=== PATIENT | male | born 1930 | race Caucasian/White ===

== ENCOUNTER 2018-01-11 12:48 | Emergency (ER) | payer MEDICARE, OTHER ==
--- NOTE | 2018-01-11 13:19 | PHYS DOC ---
Past History Past Medical History: Dementia Past Surgical History: No Surgical History Smoking: Non-smoker Alcohol Use: Occasionally Drug Use: None Adult General Chief Complaint Chief Complaint: MECHANICAL FALL HPI HPI 87-year-old male patient with history of dementia who lives at home asleep at the shoulder and had a fall and injured his face. Patient denies loss of consciousness. Patient's grandson states he was able to walk and acting like his usual. Patient denies pain. Review of Systems Review of Systems Constitutional: Denies fever or chills [] Eyes: Denies change in visual acuity, redness, or eye pain [] HENT: Denies nasal congestion or sore throat [] Respiratory: Denies cough or shortness of breath [] Cardiovascular: No additional information not addressed in HPI [] GI: Denies abdominal pain, nausea, vomiting, bloody stools or diarrhea [] : Denies dysuria or hematuria [] Musculoskeletal: Denies back pain or joint pain [] Integument: Reports contusion and laceration] Neurologic: Denies headache, focal weakness or sensory changes [] Endocrine: Denies polyuria or polydipsia [] All other systems were reviewed and found to be within normal limits, except as documented in this note. Allergies Allergies Allergies Coded Allergies Type Severity Reaction Last Updated Verified No Known Drug Allergies 01/11/18 No Physical Exam Physical Exam Constitutional: Well nourished, no acute distress, non-toxic appearance. [] HENT: Normocephalic, contusion and abrasion of right forehead, 1 cm transverse laceration of nasal base at the area of eyeglasses without active bleeding or deformity, bilateral external ears normal, oropharynx moist, no oral exudates, nose normal. [] Eyes: PERRLA, EOMI, conjunctiva normal, no discharge. [] Neck: Normal range of motion, no tenderness, supple, no stridor. [] Cardiovascular:Heart rate regular rhythm, no murmur [] Lungs & Thorax: Bilateral breath sounds clear to auscultation [] Abdomen: Bowel sounds normal, soft, no tenderness, no masses, no pulsatile masses. [] Skin: Warm, dry, no erythema, no rash. [] Back: No tenderness, no CVA tenderness. [] Extremities: No tenderness, no cyanosis, no clubbing, ROM intact, no edema. [] Neurologic: Alert and oriented X 2, normal motor function, normal sensory function, no focal deficits noted. [] Psychologic: Affect normal Current Patient Data Vital Signs Vital Signs Date Time Temp Pulse Resp B/P (MAP) Pulse Ox O2 Delivery O2 Flow Rate FiO2 01/11/18 13:03 97.3 107 18 96 Room Air EKG EKG [] Radiology/Procedures Radiology/Procedures [] Course & Med Decision Making Course & Med Decision Making Pertinent Labs and Imaging studies reviewed. (See chart for details) [] Dragon Disclaimer Dragon Disclaimer This electronic medical record was generated, in whole or in part, using a voice recognition dictation system. Departure Departure: Impression: Primary Impression: Head injury Additional Impressions: Facial laceration Facial contusion Disposition: HOME, SELF-CARE Condition: IMPROVED Patient Instructions: Contusion, Fall Prevention and Home Safety, Head Injury, Adult Additional Instructions: Follow-up with your primary care physician in 2-3 days Return to ER if not getting better Laceration Repair Lac Repair Indication: [Facial laceration] Procedure: 1 cm superficial laceration on base of nose was cleaned and repaired by Dermabond and Steri-Strip. Total repaired wound length: [ 1 cm]. Other Items: [OTHER ITEMS] The patient tolerated the procedure [well]. Complications: [none]. Problem Qualifiers GABRIELA KOHLI MD Jan 11, 2018 13:19
[2018-01-11] MEDS ORDERED: TETANUS AND DIPHTHERIA TOX/PF 0.5 ML VIAL. VAX IM ONE (13:45)
--- NOTE | 2018-01-11 14:03 | RAD ---
CT cervical spine History: Fall in shower today. Comparison: None. Technique: Noncontrast CT of the cervical spine was performed using helical technique. Axial, sagittal, coronal reconstructions were obtained. Exposure: One or more of the following individualized dose reduction techniques were utilized for this examination: 1. Automated exposure control 2. Adjustment of the mA and/or kV according to patient size 3. Use of iterative reconstruction technique Findings: There is no evidence of acute fracture or acute malalignment involving the cervical spine. No prevertebral soft tissue swelling is identified. Advanced multilevel degeneration is seen with facet and uncovertebral hypertrophy as well as degenerative disc disease. Impression: 1. No evidence of acute traumatic injury involving the cervical spine. 2. Degeneration. Electronically signed by: Christ Tyler MD (01/11/2018 2:00 PM) [id number]
--- NOTE | 2018-01-11 14:18 | RAD ---
Indication: Fall in shower, laceration to nose Technique: Noncontrast CT head was obtained. CT maxillofacial includes axial images and coronal and sagittal reformatted images. There is a prior CT maxillofacial from February 03, [address] head from February 01, 2011. One or more of the following individualized dose reduction techniques were utilized for this examination: 1. Automated exposure control 2. Adjustment of the mA and/or kV according to patient size 3. Use of iterative reconstruction technique Findings: Head: There is prominence of the ventricles and sulci. Areas of mild probable small vessel ischemic disease are noted. There is no acute intracranial hemorrhage or extra-axial fluid collection. There is no mass effect or midline shift. Owen-white differentiation is preserved. There is no depressed skull fracture. Maxillofacial: There is no orbital fracture. Nasal bones are intact. Zygomatic arches are intact. Pterygoid plates are intact. Mandible is intact. Temporomandibular relationship is maintained. There is no hemosinus. There is a retention cyst or polyp in the right sphenoid sinus and there is mild right sphenoid mucosal thickening. Mastoid air cells are clear. Both middle turbinates are at least partially paradoxical. Bilateral middle turbinate sunny bullosa also are noted. There is nasal septal deviation to the left. IMPRESSION: Head: 1. No acute intracranial findings. 2. Brain parenchymal volume loss and mild probable small vessel ischemic disease. Maxillofacial: 1. Negative for fracture. 2. Mild right sphenoid mucosal thickening. Electronically signed by: Leonel Arboleda MD (01/11/2018 2:16 PM) [id number]
[2018-01-11 14:28] VITALS: BP 126/60
== END 2018-01-11 14:46 | disposition home or self-care (01) ==
LOC: ER 12:48
DX: S01.21XA Laceration without foreign body of nose, initial encounter (principal); S00.83XA Contusion of other part of head, initial encounter; F03.90 Unspecified dementia, unspecified severity, without behavioral disturbance, psychotic disturbance, mood disturbance, and anxiety; W19.XXXA Unspecified fall, initial encounter; Y93.89 Activity, other specified; Y99.8 Other external cause status; Y92.89 Other specified places as the place of occurrence of the external cause
CPT/HCPCS: 12011; 70450; 70486; 72125; 90471; 90714; 99284-25